=== PATIENT | female | born 1940 | race Hispanic/Latino ===

== ENCOUNTER 2020-10-06 08:43 | Outpatient (CLI) | payer MEDICARE, OTHER ==
--- NOTE | 2020-10-06 13:52 | Vascular Lab Report ---
Renal vascular Ultrasound HISTORY: OTHER CEREBROVASCULAR DISEASE,ANEURYSM OF RENAL ARTERY. TECHNIQUE: Grayscale and color imaging performed. COMPARISON: None FINDINGS: The aorta is normal in size with maximal peak systolic velocity in the distal segment measu ring 125 cm/s. The common iliac arteries are normal. Normal blood flow in the celiac axis and the SMA . The right renal artery is widely patent with a maximal peak systolic velocity of 135 cm/s. There is m ild asymmetric enlargement proximally measuring 9 mm. As a comparison on the left knee maximal dimens ion is 7 mm. The left renal artery is also widely patent with maximal peak systolic velocity of 76 cm /s proximally. Right kidney measures 10.2 cm in length and the left measures 10.3 cm in length. Each respective nelida l artery to aortic ratio is less than 3.5 IMPRESSION: 1. Slight asymmetric ectasia of the right renal artery compared to the left as described above. 2. Otherwise unremarkable exam. Signer Name: Cade Pride MD Signed: 10/06/2020 1:48 PM Workstation Name: [id number]
== END 2020-10-06 08:44 | disposition home or self-care (01) ==
LOC: VAS 08:43
PROVIDERS: ATTEND Surgery Vascular Surgery
DX: I72.2 Aneurysm of renal artery (principal)
CPT/HCPCS: 93975

== ENCOUNTER 2021-11-25 08:56 | Outpatient (CLI) | payer MEDICARE, OTHER ==
--- NOTE | 2021-11-25 13:31 | Vascular Lab Report ---
VL renal vasculature INDICATION / CLINICAL INFORMATION: RENAL ARTERY ANEURYSM. COMPARISON: Renal vascular ultrasound 10/06/2020. TECHNIQUE: Grayscale and color doppler imaging performed. FINDINGS: The abdominal aorta is normal in size with maximum peak velocity measuring 85 cm/s within the distal segment. Normal blood flow is demonstrated in the celiac axis. Mildly elevated velocity in the superi or mesenteric artery measuring 208 cm/s. Right renal artery is patent with maximum peak systolic velocity of 140 cm/s, similar to previous exa m. The proximal right renal artery again measures 9 mm compared to the left proximal renal artery erwin surement of 7 mm. The left renal artery is also patent with an elevated peak systolic velocity at 212 cm/s within the distal segment. The right kidney measures 10.7 cm in the left kidney measures 10.3 cm. The right renal artery ratio i s 1.7 and the left renal artery ratio is 2.5. IMPRESSION: 1. Mildly ectatic proximal right renal artery, similar to previous exam. 2. Elevated peak systolic velocity within the left distal renal artery suggesting possible mild steno sis. 3. Elevated velocity is also noted in the superior mesenteric artery. Scribed by: Aye Ruiz RDMS, RVT, MOHAN Scribed: 11/25/2021 12:08 PM I have reviewed the images, agree with this report, and edited this report as needed. Signer Name: Jonas Douglas MD Signed: 11/25/2021 1:27 PM Workstation Name: [id number]
== END 2021-11-25 08:57 | disposition home or self-care (01) ==
LOC: VAS 08:56
DX: I72.2 Aneurysm of renal artery (principal); I65.29 Occlusion and stenosis of unspecified carotid artery; I67.89 Other cerebrovascular disease
CPT/HCPCS: 93975